=== PATIENT | male | born 2000 | race Hispanic/Latino ===

== ENCOUNTER 2023-11-29 12:25 | Emergency (ER) | payer SELFPAY ==
[~2023-11-29] VITALS: Ht 177.8 cm; Wt 99.8 kg
[2023-11-29 12:43] VITALS: PULSE 80; RESP 18; TEMP 98.5
[2023-11-29] MEDS ORDERED: IBUPROFEN200 MG PO (12:47)
[2023-11-29] MEDS ORDERED: TYLENOL325 MG PO (12:47)
[2023-11-29] MEDS: IBUPROFEN 200 MG TAB PO ONE (13:42)
[2023-11-29] MEDS: ACETAMINOPHEN 325 MG TAB PO ONE (13:43)
[2023-11-29 14:24] VITALS: BP 121/62; PULSE 71; RESP 18; TEMP 98.3; O2SAT 98
== END 2023-11-29 14:00 | disposition home or self-care (01) ==
LOC: FSED 12:30
DX: S93.492A Sprain of other ligament of left ankle, initial encounter (principal); X50.1XXA Overexertion from prolonged static or awkward postures, initial encounter; Y93.01 Activity, walking, marching and hiking; Y92.89 Other specified places as the place of occurrence of the external cause
CPT/HCPCS: 99283